=== PATIENT | male | born 1990 | race African-American/Black ===

== ENCOUNTER 2020-05-19 13:04 | Observation (INO) | payer OTHER, SELFPAY ==
[~2020-05-19] VITALS: Ht 190.5 cm; Wt 81.6 kg
[2020-05-19 13:05] VITALS: BP 89/62
--- NOTE | 2020-05-19 13:05 | NUR ---
PT BIBA FOR SUICIDAL IDEATION. PT REPORTS HE WANTS TO KILL HIMSELF BY USING TWEEZERS. PT DENIES HAVING ANY PAIN, FEVER, COUGH AT THIS TIME. DENIES HAVING THOUGHTS OF HARMING OTHER PPL. JANE DIALATED PUPILS 5MM NOTICED.
--- NOTE | 2020-05-19 13:32 | NUR ---
CRISTEL AND COVID SWAB OBTAINED AND SENT TO THE LAB.
[2020-05-19 13:34] LABS: BASOPHILS # (AUTO) 0.1 K/uL (0.00-0.22); BASOPHILS % (AUTO) 0.4 % (0.0-2.0); EOSINOPHILS # (AUTO) 0.1 K/uL (0-0.4); EOSINOPHILS % (AUTO) 0.6 % (0.0-4.0); HEMATOCRIT 37.7 % (36-52); HEMOGLOBIN 12.7 g/dL (12.0-18.0); LYMPHOCYTES # (AUTO) 1.5 K/uL (2.0-11.5); LYMPHOCYTES % (AUTO) 10.6 % (20.5-51.1); MEAN CORPUSCULAR HEMOGLOBIN 30 pg (27-31); MEAN CORPUSCULAR HGB CONC 34 g/dL (33-37); MEAN CORPUSCULAR VOLUME 88.8 fL (80-94); MONOCYTES # (AUTO) 1.7 K/uL (0.8-1.0); MONOCYTES % (AUTO) 12.2 % (1.7-9.3); NEUTROPHILS # (AUTO) 10.8 K/uL (1.8-7.7); NEUTROPHILS % (AUTO) 76.2 % (42.2-75.2); PLATELET COUNT (AUTO) 201 K/uL (140-450); RED BLOOD CELL COUNT(AUTO) 4.25 MIL/uL (4.20-6.10); RED CELL DISTRIBUTION WIDTH 13.5 % (11.6-13.7); WHITE BLOOD COUNT (AUTO) 14.2 K/uL (4.8-10.8)
[2020-05-19 13:46] LABS: ALBUMIN 3.4 g/dL (3.4-5.0); ANION GAP 15.4 (8-16); ASPARTATE AMINOTRANSFERASE 37 U/L (15-37); CARBON DIOXIDE 24.8 mmol/L (21-32); CHLORIDE 101 mmol/L (98-107); CREATININE 1.5 mg/dL (0.6-1.3); GFR ARICAN-AMERICAN 72 mL/min (>90); GLUCOSE 103 mg/dL (74-106); POTASSIUM 4.2 mmol/L (3.5-5.1); SODIUM SERUM 137 mmol/L (136-145); UREA NITROGEN, BLOOD 30 mg/dL (7-18)
[2020-05-19 14:25] LABS: BARBITURATE, URINE NEGATIVE ng/ml (NEG <=200); BENZODIAZEPINE, URINE NEGATIVE ng/mL (NEG <=200); COCAINE, URINE NEGATIVE ng/mL (NEG <=300); OPIATE, URINE NEGATIVE ng/mL (NEG <=2000); PHENCYCLIDINE SCREEN,URINE NEGATIVE ng/mL (NEG <=25)
[2020-05-19 14:53] LABS: CANNABINOID, URINE POSITIVE ng/mL (NEG <=50)
--- NOTE | 2020-05-19 14:55 | NUR ---
PSYCHIATRIST IS EVALUATING PT VIA TELEPSYCH AT THIS TIME.
--- NOTE | 2020-05-19 16:27 | NUR ---
[place] PD is at bedside.
--- NOTE | 2020-05-19 16:42 | NUR ---
PT PLACED ON /50 HOLD BY [place] PD Addendum: 05/19/20 at 1856 by MARY LOU 1:1 HECTOR IS AT BEDSIDE.
--- NOTE | 2020-05-19 16:54 | NUR ---
PT REMAINS ASLEEP AND IS ABLE TO BE AROUSED.
--- NOTE | 2020-05-19 17:52 | NUR ---
DINNER PROVIDED TO PT TO BEDSIDE. PT STATES HE DOES NOT WANT TO EAT AT THIS TIME.
--- NOTE | 2020-05-19 18:56 | NUR ---
PT AMBULATES TO THE BATHROOM WITH STEADY GAIT.
--- NOTE | 2020-05-19 19:30 | NUR ---
Pt report given to ANAMIKA Rosenberg. Transfer of care at this time.
[2020-05-19] MEDS ORDERED: ACETAMINOPHEN EXTRA STRENGTH 500 MG TAB PO ONE (21:30)
--- NOTE | 2020-05-19 21:31 | NUR ---
RECEIVED REPORT AT BEDSIDE FORM [facility] NURSE.PT LYING IN BED AOX4. PT C/O DRY COUGH AND CONGESTION. V/S FOLLOWS: T 100.3 P 80 R 18 B/P 139/72 02 97% ON ROOM AIR. SPOKE WITH ER MD DR Winston, WHOM ORDERED A CXR, UA WELL TYLENOL. PT GIVING ICE PACKS COLING MEASURES.
--- NOTE | 2020-05-19 21:42 | NUR ---
X-Ray at bedside.
--- NOTE | 2020-05-19 23:02 | NUR ---
Packet received for placement
--- NOTE | 2020-05-20 | NUR ---
CORONAVIRIRS SWAB DONE BOTH RAPID AND PCR AND SENT TO THE LAB. PT ALSO SWABED FOR A AND B FLU. V/S FOLLOWS: T 98.9 P 86 R 18 B/P 109/77 02 97% ON ROOM AIR.
[2020-05-20] MEDS ORDERED: AZITHROMYCIN 500 MG in DEXTROSE 5% 250 ML IV ONE (00:10)
[2020-05-20] MEDS ORDERED: DEXAMETHASONE 4 MG/ML VIAL IVP ONE (00:10)
[2020-05-20] MEDS ORDERED: NACL 0.9% 1,000 ML IV ONE (00:10)
[2020-05-20 00:52] LABS: APPEARANCE,URINE CLEAR (CLEAR); BILIRUBIN,URINE NEGATIVE (NEGATIVE); BLOOD, URINE NEGATIVE (NEGATIVE); COLOR,URINE YELLOW (YELLOW); LEUKOCYTE ESTERASE ,URINE NEGATIVE (NEGATIVE); NITRITE, URINE NEGATIVE (NEGATIVE); PH,URINE 7.5 (5.0-9.0); UGLUCOSE NEGATIVE (NEGATIVE)
[2020-05-20] MEDS ORDERED: AZITHROMYCIN 500 MG INJ VIAL IV ONE (00:53)
[2020-05-20] MEDS ORDERED: cefTRIAXone 1,000 MG VIAL ONE (00:53)
[2020-05-20] MEDS ORDERED: HYDROcodone/APAP 5/325 MG 1 TAB TAB PO PRN (01:00)
[2020-05-20] MEDS ORDERED: ACETAMINOPHEN 325 MG TAB PO PRN (01:00)
[2020-05-20] MEDS ORDERED: AZITHROMYCIN 500 MG in DEXTROSE 5% 250 ML IV SCH (01:00)
[2020-05-20] MEDS ORDERED: ONDANSETRON 4 MG/2 ML VIAL IVP PRN (01:00)
--- NOTE | 2020-05-20 01:30 | NUR ---
PLACED A 20G IN LEFT AC PT GIVEN ORDERED ROCEPHIN, ZITHROMAX AND NS BOLUS. PT ALSO RECIEVED REQUESTED FOOD.NO ADVERSE EFFECTS FORM ABT'S.
--- NOTE | 2020-05-20 01:54 | NUR ---
Received call from Alan stating patient is going to be admitted to med floor Packet was already faxed to psych placement to the following facilities [facility]
--- NOTE | 2020-05-20 04:10 | NUR ---
PT IN BED ASLEEP, NO S/S OF PAIN OR DISTRESS NOTED V/S FOLLOWS: T 97.0P 65 R 18 B/P 109/53 02 98% ON ROOM AIR.
--- NOTE | 2020-05-20 04:55 | NUR ---
pt moved via gurney to ER bed 8
--- NOTE | 2020-05-20 07:15 | NUR ---
REPORT RECEIVED FROM ANAMIKA GRIMES
--- NOTE | 2020-05-20 07:33 | NUR ---
releving report given to vikki rn dayshift nurse at bedside for continuity of care,pt in stable condition.
--- NOTE | 2020-05-20 07:40 | NUR ---
FLU SWAB OBTAINED AND SENT TO LAB
--- NOTE | 2020-05-20 07:49 | NUR ---
PT GIVEN BREAKFAST TRAY
--- NOTE | 2020-05-20 07:49 | NUR ---
FLU SWAB COLLECTED AND WALKED TO LAB
--- NOTE | 2020-05-20 07:49 | NUR ---
Received report. There are no beds at this time. [facility] working on placement.
[2020-05-20 07:50] VITALS: BP 109/53
--- NOTE | 2020-05-20 07:54 | NUR ---
REPORT TO ANAMIKA LEWIS.
--- NOTE | 2020-05-20 08:05 | NUR ---
Patient will be admitted to care of DR. WOLF. Admited to MED/SURG. Will go to room 109A. Belongings list completed. Report to ANAMIKA LEWIS.
--- NOTE | 2020-05-20 08:20 | NUR ---
RECEIVED REPORT FROM EMERGENCY ROOM NURSE FOR CONTINUITY OF CARE. PATIENT IN STABLE CONDITION. RESPIRATIONS EVEN AND UNLABORED, ROOM AIR. IV INTACT AND PATENT. SAFETY MEASURES IN PLACE. BED IN LOW POSITION. CALL LIGHT WITHIN REACH. WILL CONTINUE TO MONITOR. Addendum: 05/20/20 at 2016 by Megha Aly RN HECTOR 1:1
--- NOTE | 2020-05-20 10:00 | NUR ---
PATIENT IN SHOWER AT THIS TIME.
--- NOTE | 2020-05-20 10:36 | NUR ---
DISCHARGE PLANNING: THIS IS A 22 Y/O HOMELESS MALE PATIENT, WHO WAS BROUGHT IN BY EMS FOR SUICIDAL IDEATION AND ALCOHOL INTOXICATION. NO SIGNIFICANT PAST MEDICAL HISTORY. INITIAL DIAGNOSIS OF PNEUMONIA 5150 HOLD. CURRENT LABS INCLUDE WBC 14.2, H/H 12.7/37.7, NA/K 137/4.2, BUN/CREA 30/1.5. UDS SHOWED POSITIVE FOR AMPHETAMINES AND CANNABINOIDS. COVID NEGATIVE. CHEST X RAY SHOWED LEFT BASILAR CONSOLIDATION SUSPICIOUS FOR PNEUMONIA. BLOOD CS PENDING. NOT SEEN BY ATTENDING YET. DC PLAN PENDING ON THE PATIENT'S RESPONSE TO TREATMENT. Addendum: 05/20/20 at 1341 by Genevieve Lugo CM DC PLANNING: [facility] IN [place] CALLED THE UNIT SPOKE WITH KIANNA PETERSON DIRECTOR AND STATED THEY ACCEPTED PATIENT AND CAN GO TO ROOM 1302A UNIT 2, ACCEPTING DR ANTOINE. CALLED [facility] SPOKE WITH ANGELO NOTIFIED THAT PATIENT HAS PNEUMONIA AND TO CONTINUE PO ABX CALLED DR RANDALL NOTIFIED HIM THAT [facility] ACCEPTED PATIENT. PER PT CAN GO WITH PO ABX. ARRANGE TRANSPORT WITH [facility] TIME 3 PM CM TO FOLLOW NOTIFIED JOSHUA WILLSON Addendum: 05/20/20 at 1342 by Genevieve Lugo CM DC PLANNING: PICK UPTIME 2:30 PM NOTIFIED JOSHUA JUAREZ FAXED PCS FOR TO
--- NOTE | 2020-05-20 11:40 | NUR ---
SOCIAL WORK NOTE: SW MET WITH PATIENT AT BEDSIDE TO COMPLETE ASSESSMENT. PATIENT REFUSED TO COMPLETE ASSESSMENT WITH SW. SW CALLED PATIENT'S NAME 3X. PATIENT SHOOK HIS HEAD AT AND REFUSED TO ANSWER ANY PROMPTING QUESTIONS. SW WILL FOLLOW UP. Addendum: 05/20/20 at 1254 by Genevieve Lugo DC PLANNING: [facility] IN [place] CALLED THE UNIT SPOKE WITH KIANNA PETERSON DIRECTOR AND STATED THEY ACCEPTED PATIENT AND CAN GO TO ROOM 1302A UNIT 2, ACCEPTING DR ANTOINE. CALLED [facility] SPOKE WITH ANGELO NOTIFIED THAT PATIENT HAS PNEUMONIA AND TO CONTINUE PO ABX CALLED DR RANDALL NOTIFIED HIM THAT [facility] ACCEPTED PATIENT. PER PT CAN GO WITH PO ABX. ARRANGE TRANSPORT WITH [facility] TIME 3 PM CM TO FOLLOW NOTIFIED JOSHUA WILLSON
--- NOTE | 2020-05-20 12:15 | NUR ---
Received a call from [facility] in [place] to receive the patient to Unit 2 room [address]2A [place] [address] [place] [address]. Nurse to call report to [phone] when ready for transport. Genevieve, Engineering Aid updated on the call and following up for medical clearance.
--- NOTE | 2020-05-20 12:46 | NUR ---
Genevieve, money manager, called to update to expect MD to d/c the patient to [facility] pending changing ABX therapy to PO. patient is AXOX4, no SOB and VS stable.
--- NOTE | 2020-05-20 12:51 | NUR ---
PATIENT HAS BEEN SCREENED AND CATEGORIZED LOW NUTRITION RISK. PATIENT WILL BE SEEN WITHIN 7 DAYS OF ADMISSION. 05/25/[address]
--- NOTE | 2020-05-20 13:45 | NUR ---
GAVE REPORT TO DON STAFF NURSE AT [facility] FOR CONTINUITY OF CARE. ALL QUESTIONS ANSWERED AT THIS TIME.
--- NOTE | 2020-05-20 14:02 | NUR ---
CALLED SECURITY TO BRING PATIENT BELONGINGS. PATIENT CHANGED INTO CLOTHES FOR DEPARTURE TO [facility].
[2020-05-20] MEDS ORDERED: AZIT500T8 PO ×2 (14:54→14:55)
[2020-05-20 15:42] LABS: BASOPHILS % (AUTO) 0.2 % (0.0-2.0); EOSINOPHILS % (AUTO) 0.2 % (0.0-4.0); HEMATOCRIT 38.4 % (36-52); HEMOGLOBIN 12.7 g/dL (12.0-18.0); LYMPHOCYTES # (AUTO) 1.2 K/uL (2.0-11.5); LYMPHOCYTES % (AUTO) 9.8 % (20.5-51.1); MEAN CORPUSCULAR HEMOGLOBIN 30 pg (27-31); MEAN CORPUSCULAR HGB CONC 33 g/dL (33-37); MEAN CORPUSCULAR VOLUME 89.5 fL (80-94); MONOCYTES % (AUTO) 8.5 % (1.7-9.3); NEUTROPHILS # (AUTO) 9.7 K/uL (1.8-7.7); NEUTROPHILS % (AUTO) 81.3 % (42.2-75.2); PLATELET COUNT (AUTO) 197 K/uL (140-450); RED BLOOD CELL COUNT(AUTO) 4.29 MIL/uL (4.20-6.10); RED CELL DISTRIBUTION WIDTH 13.2 % (11.6-13.7)
[2020-05-20 15:51] LABS: ANION GAP 13.1 (8-16); CREATININE 0.9 mg/dL (0.6-1.3); POTASSIUM 4.1 mmol/L (3.5-5.1)
--- NOTE | 2020-05-20 16:30 | NUR ---
GAVE DISCHARGE INSTRUCTIONS AND GAVE PRESCRIPTION FOR MEDICATION AT TRANSFERRING FACILITY. PATIENT VERBALIZED UNDERSTANDING. IV REMOVED. ID BAND REMOVED. PATIENT PLACED ON GURNEY IN STABLE CONDITION.
--- NOTE | 2020-05-23 20:57 | NUR ---
LATE ENTRY---- AZITHROMYCIN/DEXTROSE IVPB DISCONTINUED AT 0200.
== END 2020-05-20 16:30 ==
LOC: MED 13:04 → MMU 05-20 01:08 → MTU 05-20 06:20
PROVIDERS: ADMIT Hospitalist; ATTEND Hospitalist
DX: J18.9 Pneumonia, unspecified organism (principal); Z20.828 Contact with and (suspected) exposure to other viral communicable diseases; R45.851 Suicidal ideations; J45.909 Unspecified asthma, uncomplicated; F20.9 Schizophrenia, unspecified; F10.129 Alcohol abuse with intoxication, unspecified; Z79.899 Other long term (current) drug therapy
CPT/HCPCS: 36415; 71045; 80048; 80053; 80305; 81003; 83605; 85025; 87040; 87426; 87804; 93005; 96365; 96367; 96375; 99285; G0378; G0482; J0456; J0696; J1100; Q0092; U0003; J7060